=== PATIENT | male | born 1965 | race Caucasian/White ===

== ENCOUNTER → 2020-02-21 | Outpatient (CLI) | payer BC ==
--- NOTE | 2020-02-21 11:56 | ECHOS ---
STRESS ECHOCARDIOGRAM INDICATIONS: Palpitations BASELINE HEART RATE: 67 BASELINE BLOOD PRESSURE: 137/72 MAXIMUM HEART RATE: 144 MAXIMUM BLOOD PRESSURE: 212/96 85% MPHR: 134 100% MPHR: 164 METS: 10.7 MAXIMUM STAGE REACHED: 3 TOTAL EXERCISE TIME: 9:15 CLINICAL INFORMATION: Baseline rhythm is sinus mechanism rate of 67, normal axis, intervals, normal echocardiogram. Baseline blood pressure 137/72 mmHg. Patient exercised on Zane protocol for 9 minutes 15 seconds, reaching a peak rate of 144 beats per minute which is equal to 88% maximum predicted heart rate. Peak blood pressure 212/96 mmHg. Test was terminated due to fatigue. There was no chest pain. Electrocardiograph monitoring revealed no evidence of diagnostic ischemic ST deviation. FINDINGS: Baseline echocardiogram revealed normal wall motion. At peak exercise, there was normal wall motion augmentation with no hypokinesis or dyskinesis. CONCLUSION: 1. Average exercise tolerance with normal echocardiograph response to exercise. 2. Normal stress echocardiogram with no evidence of stress-induced ischemia. MMODL / IJN: [id number] /
== END | disposition home or self-care (01) ==
LOC: RADNMMAIN 08:58
PROVIDERS: ATTEND Family Medicine
DX: R00.2 Palpitations (principal)
CPT/HCPCS: 93351; Q9950

== ENCOUNTER → 2020-06-14 | Outpatient (CLI) | payer OTHER | END | disposition home or self-care (01) | LOC: LABPAT 08:13 | PROVIDERS: ATTEND Surgery | DX: Z01.812 Encounter for preprocedural laboratory examination (principal); Z20.822 Contact with and (suspected) exposure to COVID-19 | CPT/HCPCS: 93005; U0003; C9803; U0005 ==

== ENCOUNTER 2020-06-21 10:12 | Day surgery (SDC) | payer BC, OTHER ==
[2020-06-20 08:30] VITALS: BMI 32.2
[~2020-06-21 10:12] MED LIST: DEXAMETHASONE SOD PHOSPHATE 4 MG/ML 1 ML VIAL IV ONE; HEPARIN SODIUM,PORCINE 5,000 UNIT/ML 1 ML VIAL SQ PRN; HYDROmorphone 0.5 MG/0.5 ML SYRINGE IVP PRN; LACTATED RINGERS 1,000 ML IV SCH; LIDOCAINE 1% (10MG/ML) FOR IV START INTRADERMA PRN; MIDAZOLAM 2 MG/2 ML VIAL IV PRN; ONDANSETRON 4 MG/2 ML VIAL IVP ONE
[2020-06-21 11:20] LABS: HCT 46.9 % (39.0-53.0); HGB 16.5 gm/dL (13.0-17.5); MCH 31.2 pg (25.0-35.0); MCHC 35.3 g/dL (31.0-37.0); MCV 88.5 fL (80.0-100.0); Mean Platelet Volume 8.1; Platelet Count 177 k/uL (150-450); RDW 12.8 % (11.5-15.5); WBC 6.4 k/uL (3.8-10.6)
[2020-06-21] MEDS ORDERED: fentaNYL (PF) 50 MCG/ML 2 ML AMP IV ONE (11:30)
--- NOTE | 2020-06-21 12:07 | P.ANPRN ---
Procedure Note - Anesthesia - Nerve Block Performed Bilateral Rectus Abdominis Single Time Out Performed: Yes Date of Procedure: 06/21/20 Procedure Start Time: 11:30 Procedure Stop Time: 11:40 Location of Patient: PreOp Indication: Requested by Surgeon Specifically requested for management of pain by : Dominic Elizabeth (the block done to minimize post op opioid use ,as part of multimodel pain management) Sedation Type: Sedate with meaningful contact maintained Preparation: Sterile Prep Position: Supine Needle Types: Pajunk Needle Gauge: 21 Ultrasound used to visualize needle placement: Yes Ultrasound used to observe medication spread: Yes Injectate: 0.5% Ropivacaine (see comment for volume) (20 ml per side plus Dexamethasone 4 mg per side) Blood Aspirated: No Pain Paresthesia on Injection Noted: No Resistance on Injection: Normal Image Stored and Saved: Yes Events: Uneventful and Well Tolerated
[2020-06-21] MEDS ORDERED: HYDROmorphone (PF) 1 MG/ML ONE (12:15)
[2020-06-21] MEDS ORDERED: ROCURONIUM 10 MG/ML (5 ML VIAL) IV ONE (12:15)
[2020-06-21] MEDS ORDERED: LIDOCAINE 1% INJ 10MG/ML (20 ML MDV) ONE (12:15)
[2020-06-21] MEDS ORDERED: SUCCINYLCHOLINE CHLORIDE 100 MG/5 ML SYR IV ONE (12:15)
[2020-06-21] MEDS ORDERED: NEOSTIGMINE 1 MG/ML 10 ML VIAL ONE (12:15)
[2020-06-21] MEDS ORDERED: MIDAZOLAM 2 MG/2 ML VIAL ONE (12:15)
[2020-06-21] MEDS ORDERED: ePHEDrine SULFATE/0.9% NACL/PF 50 MG/5 ML SYRINGE IV ONE (12:15)
[2020-06-21] MEDS ORDERED: fentaNYL (PF) 50 MCG/ML 2 ML AMP ONE (12:15)
[2020-06-21] MEDS ORDERED: DEXAMETHASONE SOD PHOSPHATE 4 MG/ML 1 ML VIAL ONE (12:15)
[2020-06-21] MEDS ORDERED: PROPOFOL 10 MG/ML 20 ML VIAL IV ONE (12:15)
[2020-06-21] MEDS ORDERED: ROPIVACAINE 5 MG/ML 30 ML VIAL ONE (12:15)
[2020-06-21] MEDS ORDERED: GLYCOPYRROLATE 0.2 MG/ML 2 ML VIAL ONE (12:15)
[2020-06-21] MEDS: ceFAZolin 3 GM in SODIUM CHLORIDE 0.9% 100 ML IVPB PRN ×2 (12:20→12:21)
[2020-06-21] MEDS ORDERED: BUPIVACAIN-EPI 0.5%-1:200,000 30 ML VIAL SQ ONE ×2 (12:29→13:16)
[2020-06-21] MEDS ORDERED: LACTATED RINGERS 1,000 ML IV ONE (13:14)
--- NOTE | 2020-06-21 13:59 | P.OP ---
Date of Procedure: 06/21/20 Preoperative Diagnosis: Umbilical hernia Postoperative Diagnosis: Incarcerated umbilical hernia Procedure(s) Performed: Robotic repair of incarcerated umbilical hernia with mesh Anesthesia: MARGARITO Surgeon: Dominic Elizabeth Pathology: other (Hernia sac) Condition: stable Disposition: same day Indications for Procedure: 54-year-old male presented to the surgery clinic with complaints of pain around his umbilicus and was diagnosed with umbilical hernia. Patient requested surgical repair. He was risks, benefits and alternatives to the procedure and did provide consent prior to attending the operating suite. Operative Findings: Incarcerated umbilical hernia, incarcerated with mesentery, omentum along with epiploic appendage of colon Description of Procedure: The patient was brought to the operating suite and placed in supine position on the operating table. Gen. anesthesia with endotracheal intubation was performed as per anesthesia team. The right arm was tucked against the body and a footboard was applied. Patient was prepped and regular sterile fashion. A timeout was performed to verify correct patient and correct procedure. Patient was confirmed to received perioperative IV antibiotics, bilateral SCDs and 5000 units of subcutaneous heparin for DVT prophylaxis. A 5 mm incision was made along the left midaxillary line at palmers point and the abdomen was entered under direct visualization using a Visiport. Pneumoperitoneum was achieved. The umbilical hernia was clearly visualized. An additional 8 mm trocar was placed in left lower abdomen and in the epigastrium. The initial 5 mm trocar was upsized to a 12 mm trocar. The da Marco A robot was then docked. The 30 robotic camera was used. Robotic prograsp and monopolar scissors were inserted through the 8 mm robotic trochars. The hernia defect contained omentum, mesentery along with epiploic appendage of colon which was reduced using gentle traction and countertraction method. The falciform ligament was divided, using monopolar scissors close to the anterior abdominal wall to create a landing zone for the mesh. A Ventralight Echo 11 cm circular mesh was rolled and introduced into the abdominal cavity via the 12 mm trocar. The hernia defect was closed primarily with running sutures using 0V lock by taking once a bite on the fascia on either side of the defect. A Eusebio Cole device was inserted through the middle of the hernia defect and the stay suture on the mesh was grasped to elevate the mesh against the anterior abdominal wall. The mesh was then circumferentially sutured to the peritoneum of the anterior abdominal wall using 20V lock suture without any folds or kinks. The robot was then undocked. Laparoscopic 30 camera was reinserted. All trocar sites were examined. No evidence of bleeding. The 12 mm trocar site was closed using 2 transverse fascial sutures of 0 Vicryl which was placed using a Eusebio Cole device. The hernia sac was removed from the abdomen and sent as specimen. The pneumoperitoneum was evacuated and all skin incisions were closed using 4-0 Monocryl suture followed by Dermabond skin glue. The sponge, instrument and needle count were correct 2. Abdominal binder was applied. The patient was extubated and taken to postanesthesia care unit in stable condition.
[2020-06-21 14:09] VITALS: TEMP 97
[2020-06-21 15:07] VITALS: BP 136/81; PULSE 61; RESP 17
== END 2020-06-21 15:16 | disposition home or self-care (01) ==
LOC: OR 10:12
PROVIDERS: ATTEND Surgery
DX: K42.0 Umbilical hernia with obstruction, without gangrene (principal); I10 Essential (primary) hypertension; E78.5 Hyperlipidemia, unspecified; F41.9 Anxiety disorder, unspecified; K21.9 Gastro-esophageal reflux disease without esophagitis; E03.9 Hypothyroidism, unspecified; R86.1 Abnormal level of hormones in specimens from male genital organs; N52.9 Male erectile dysfunction, unspecified; G47.33 Obstructive sleep apnea (adult) (pediatric); Z98.890 Other specified postprocedural states; Z79.899 Other long term (current) drug therapy; Z79.890 Hormone replacement therapy; Z79.811 Long term (current) use of aromatase inhibitors; Z88.8 Allergy status to other drugs, medicaments and biological substances; Z99.89 Dependence on other enabling machines and devices; Z79.82 Long term (current) use of aspirin; Z82.49 Family history of ischemic heart disease and other diseases of the circulatory system; Z83.3 Family history of diabetes mellitus
CPT/HCPCS: 49653; S2900; 64488; 85027; 86850; 86900; 86901; 88302

== ENCOUNTER 2022-03-03 06:41 | Emergency (ER) | payer OTHER ==
[2022-03-03 07:32] VITALS: RESP 20
--- NOTE | 2022-03-03 07:34 | XR ---
EXAMINATION TYPE: XR chest 2V DATE OF EXAM: 03/03/2022 7:28 AM COMPARISON: CT chest 06/09/2013. TECHNIQUE: XR chest 2V Frontal and lateral views of the chest. CLINICAL INDICATION:Male, 56 years old with history of coughing up blood; FINDINGS: Lungs/Pleura: There is no evidence of pleural effusion, focal consolidation, or pneumothorax. Pulmonary vascularity: Unremarkable. Heart/mediastinum: Cardiomediastinal silhouette is unremarkable. Musculoskeletal: No acute osseous pathology. Degenerative changes of the visualized spine with endpla te sclerosis, disc space narrowing, and osteophytosis. IMPRESSION: No acute cardiopulmonary disease/process.
--- NOTE | 2022-03-03 07:55 | ED ---
URI HPI - General Chief Complaint: Upper Respiratory Infection Stated Complaint: Coughing up blood Time Seen by Provider: 03/03/22 07:31 Source: patient Mode of arrival: ambulatory Limitations: no limitations - History of Present Illness Initial Comments: 's patient is 56-year-old man who presents to be evaluated for hemoptysis. The patient states that this morning when he got up he had a little bit of coughing and noticed that there was bloody taste to it. The patient states that he really had no respiratory history until about 6-7 weeks ago when he had covid infection. He states that he had coughing that cleared up after couple of weeks but then after another few weeks it recurred, and he has been coughing since that time. The cough is largely nonproductive. The patient has seen his physician and he was given an inhaler to use as well as a pill for coughing. He has not had fevers. He is not feeling short of breath. The patient denies significant smoking history. 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 No weight loss. No chest pain. No dyspnea. No fever or chills. No change in urination or bowel movements. No leg pain or swelling. MD Complaint: cough, other Onset/Timin -: hour(s) Severity scale (1-10): 0 Consistency: now resolved Improves With: nothing Worsens With: nothing Associated Symptoms: cough Treatments Prior to Arrival: none - Related Data Home Medications Medication Instructions Recorded Confirmed Losartan/Hydrochlorothiazide 1 tab PO DAILY 11/06/13 06/21/20 [Hyzaar 100-25 Tablet] atenoloL [Tenormin] 25 mg PO DAILY 11/06/13 06/21/20 Aspirin [Adult Low Dose Aspirin EC] 81 mg PO DAILY 06/20/20 06/21/20 Omeprazole [PriLOSEC] 20 mg PO AC-BRKFST 06/20/20 06/21/20 Previous Rx's Medication Instructions Recorded HYDROcodone/APAP 5-325MG [[place] 1 tab PO Q6HR PRN 3 Days #12 tab 06/21/20 5-325] Ibuprofen [Motrin] 800 mg PO Q8H PRN #24 tab 06/21/20 Allergies Allergy/AdvReac Type Severity Reaction Status Date / Time cyclobenzaprine Allergy Rapid Verified 03/03/22 06:49 [From Flexeril] Heart Rate/rash Review of Systems ROS Statement: Those systems with pertinent positive or pertinent negative responses have been documented in the HPI. ROS Other: All systems not noted in ROS Statement are negative. Constitutional: Denies: fever, chills Respiratory: Reports: cough, hemoptysis. Denies: dyspnea, wheezes, stridor Cardiovascular: Denies: chest pain, palpitations, dyspnea on exertion, o rthopnea, edema, syncope Gastrointestinal: Denies: abdominal pain, vomiting, diarrhea, melena, hematochezia Genitourinary: Denies: dysuria, frequency, hematuria Skin: Denies: rash Neurological: Denies: headache Past Medical History Past Medical History: Hypertension, Sleep Apnea/CPAP/BIPAP History of Any Multi-Drug Resistant Organisms: None Reported Past Surgical History: Back Surgery, Orthopedic Surgery Additional Past Surgical History / Comment(s): L4-5 laminectomy, rt carpal tunnel Past Anesthesia/Blood Transfusion Reactions: No Reported Reaction Past Psychological History: Anxiety Smoking Status: Never smoker Past Alcohol Use History: None Reported Past Drug Use History: None Reported - Past Family History Mother Family Medical History: No Reported History General Exam Limitations: no limitations General appearance: alert, in no apparent distress Head exam: Present: atraumatic, normocephalic Eye exam: Present: normal appearance. Absent: scleral icterus, conjunctival injection ENT exam: Present: normal oropharynx Neck exam: Present: normal inspection Respiratory exam: Present: normal lung sounds bilaterally. Absent: respiratory distress, wheezes, rales, rhonchi, stridor, chest wall tenderness, accessory muscle use, decreased breath sounds, prolonged expiratory Cardiovascular Exam: Present: regular rate, normal rhythm, normal heart sounds. Absent: systolic murmur, diastolic murmur, rubs, gallop GI/Abdominal exam: Present: soft. Absent: distended, tenderness, guarding, rebound, rigid, mass Extremities exam: Present: normal inspection, normal capillary refill. Absent: pedal edema, calf tenderness Back exam: Present: normal inspection. Absent: CVA tenderness (R), CVA tenderness (L) Neurological exam: Present: alert Skin exam: Present: warm, dry, intact, normal color. Absent: rash Course Vital Signs 03/03/22 03/03/22 06:49 07:30 Temperature 98.1 F Pulse Rate 96 Respiratory 16 20 Rate Blood Pressure 164/94 O2 Sat by Pulse 98 Oximetry Disposition Clinical Impression: Hemoptysis Disposition: HOME SELF-CARE Condition: Good Instructions (If sedation given, give patient instructions): Coughing Up Blood (Hemoptysis) (ED) Is patient prescribed a controlled substance at d/c from ED?: No Referrals: Ulices Delvalle MD [Primary Care Provider] - 1-2 days
[2022-03-03 08:13] VITALS: BP 138/78; PULSE 80; TEMP 98.7
== END 2022-03-03 08:12 | disposition home or self-care (01) ==
LOC: EC 06:41
DX: R04.2 Hemoptysis (principal); I10 Essential (primary) hypertension; F41.9 Anxiety disorder, unspecified; Z88.8 Allergy status to other drugs, medicaments and biological substances; Z79.82 Long term (current) use of aspirin; Z79.899 Other long term (current) drug therapy
CPT/HCPCS: 71046; 99283

== ENCOUNTER 2023-04-20 10:13 | Day surgery (SDC) | payer OTHER ==
[~2023-04-20 10:13] MED LIST changes: -HEPARIN SODIUM,PORCINE 5,000 UNIT/ML 1 ML VIAL SQ PRN; -LACTATED RINGERS 1,000 ML IV SCH; -MIDAZOLAM 2 MG/2 ML VIAL IV PRN; +SCOPOLAMINE 1 MG/72 HR PATCH TRANSDERM ONE; +droPERidol 5 MG/2 ML VIAL IVP ONE
--- NOTE | 2023-04-20 10:32 | XR ---
EXAMINATION TYPE: XR KUB DATE OF EXAM: 04/20/2023 Comparison: None Clinical History: 57-year-old male kidney stones Findings: Mild degenerative change of the hips. Left-sided pelvic phleboliths. Questionable faint 5 mm density left paramedian mid abdomen. No other suspicious calcifications are clearly identified. Nonobstructiv e bowel gas pattern. Impression: Questionable faint 5 mm density left paramedian mid abdomen. If left-sided renal colic, a subtle uppe r ureteral stone would be difficult to exclude.
--- NOTE | 2023-04-20 10:48 | P.HPIHPCON ---
History of Present Illness H&P Date: 04/20/23 Chief Complaint: Ureteral stone This is a 57-year-old male with history of 2 left-sided ureteral stone measuring 4 and 6 mm. He is symptomatic from his stones. Option of left-sided ureteroscopy with holmium laser was discussed with him. Aware of the risk which includes but not limited to bleeding, infection, injury to the ureter. Risk of anesthesia was discussed. He understood all the risk and agreed to proceed Consent for Procedure: I have explained the operation/procedure to the patient, including the risks, benefits, side effects, alternative therapies (including not receiving the proposed treatment or service), the likelihood of the patient achieving his/her goals, and potential recuperation problems for the procedure/sedation/analgesia, as well as any blood products, if indicated. I also explained to the patient the risks, benefits and side effects of the alternatives, as well as the risks related to not receiving the proposed procedure, care, treatment, or services. Past Medical History Past Medical History: GERD/Reflux, Hypertension, Sleep Apnea/CPAP/BIPAP Additional Past Medical History / Comment(s): wear cpap, kidney stones History of Any Multi-Drug Resistant Organisms: None Reported Past Surgical History: Back Surgery, Orthopedic Surgery Additional Past Surgical History / Comment(s): L4-5 laminectomy, rt carpal tunnel, colonoscopy Past Anesthesia/Blood Transfusion Reactions: No Reported Reaction Smoking Status: Never smoker - Past Family History Mother Family Medical History: No Reported History Medications and Allergies Home Medications Medication Instructions Recorded Confirmed Type Losartan/Hydrochlorothiazide 1 tab PO DAILY 11/06/13 04/15/23 History [Hyzaar 100-25 Tablet] atenoloL [Tenormin] 25 mg PO DAILY 11/06/13 04/15/23 History Aspirin [Adult Low Dose Aspirin EC] 81 mg PO DAILY 06/20/20 04/15/23 History Omeprazole [PriLOSEC] 20 mg PO AC-BRKFST 06/20/20 04/15/23 History HYDROcodone/APAP 5-325MG [[place] 1 tab PO Q6HR PRN 3 Days #12 tab 06/21/20 04/15/23 Rx 5-325] Ibuprofen [Motrin] 800 mg PO Q8H PRN #24 tab 06/21/20 04/15/23 Rx Escitalopram [Lexapro] 20 mg PO DAILY 04/15/23 04/15/23 History Levothyroxine Sodium 100 mcg PO DAILY 04/15/23 04/15/23 History Unk Vitamin D 1 tab PO DAILY 04/15/23 04/15/23 History metFORMIN HCL [Glucophage] 1,000 mg PO BID 04/15/23 04/15/23 History Allergies Allergy/AdvReac Type Severity Reaction Status Date / Time cyclobenzaprine Allergy Rapid Verified 04/15/23 12:22 [From Flexeril] Heart Rate/rash Surgical - Exam - General no distress, moderate pain - Eyes normal ocular movement, no pale - ENT normal nares, normal mucosa - Respiratory normal expansion, normal respiratory effort - Abdomen Abdomen: soft, non tender Assessment and Plan Assessment: OR for left-sided ureteroscopy, holmium laser lithotripsy, stone basketing and stent insertion
[2023-04-20 11:06] VITALS: TEMP 96.8
[2023-04-20] MEDS: LACTATED RINGERS 1,000 ML IV SCH ×2 (11:06→11:48)
[2023-04-20] MEDS ORDERED: LIDOCAINE 1% INJ 10MG/ML (20 ML MDV) ONE (11:43)
[2023-04-20] MEDS ORDERED: fentaNYL (PF) 50 MCG/ML 2 ML AMP ONE (11:43)
[2023-04-20] MEDS ORDERED: MIDAZOLAM 2 MG/2 ML VIAL ONE (11:43)
[2023-04-20] MEDS ORDERED: KETOROLAC 15 MG/ML 1 ML VIAL ONE (11:43)
[2023-04-20] MEDS ORDERED: PROPOFOL 10 MG/ML 20 ML VIAL IV ONE (11:43)
[2023-04-20] MEDS ORDERED: WATER FOR INJECTION, STERILE 10 ML VIAL IV ONE (11:43)
[2023-04-20] MEDS ORDERED: PHENYLEPHRINE-0.9% NACL SYG 1,000 MCG/10 ML SYRINGE ONE (11:43)
[2023-04-20] MEDS ORDERED: ePHEDrine 50 MG/ML 1 ML VIAL ONE (11:43)
[2023-04-20] MEDS ORDERED: LACTATED RINGERS 1,000 ML IV ONE (12:42)
--- NOTE | 2023-04-20 13:12 | P.OP ---
Date of Procedure: 04/20/23 Preoperative Diagnosis: Left ureteral stone Postoperative Diagnosis: same Procedure(s) Performed: Cystoscopy, left ureteroscopy, holmium laser lithotripsy, stone basketing and stent insertion Implants: 6-Macedonian by 28 cm stent on the left ureter, left on string Anesthesia: ESSENCEA Surgeon: Kolby Perez Estimated Blood Loss (ml): 5 Pathology: other (left ureteral) Condition: stable Disposition: PACU Indications for Procedure: This is a 57-year-old male with history of 2 left-sided ureteral stone measuring 4 and 6 mm. He is symptomatic from his stones. Option of left-sided ureteroscopy with holmium laser was discussed with him. Aware of the risk which includes but not limited to bleeding, infection, injury to the ureter. Risk of anesthesia was discussed. He understood all the risk and agreed to proceed Operative Findings: Left distal ureteral stone, left proximal ureteral stone Description of Procedure: Patient was brought to the operating room, general anesthesia was induced. He was prepped and draped in sterile fashion and placed in dorsal lithotomy position. Cystoscopy fitted with a 21-Macedonian sheath was inserted per urethra, cystoscopy was performed which showed no abnormality within the bladder. Attention was then carried to the left ureteral orifice, a semirigid ureteroscope was inserted per urethra and advanced up the left ureteral orifice, stone was encountered in the distal ureter which was lasered, fragments were removed using the stone basket. At this time I advance the scope all the way up to the proximal ureter and an additional large stone was encountered, using the holmium laser the stone was fragmented, stone fragments were removed using the stone basket. At this time pullback ureteroscopy was performed showed no abnormality within the ureter or njury to the ureter or any sizable fragments, as ureteroscope was withdrawn a wire was advanced through. Next an 1113 Macedonian access sheath was passed over the wire into the proximal ureter. Next a flexible ureteroscope was inserted through the access sheath, renoscopy was performed which showed an additional stone in the upper pole that was dusted, repeat renoscopy showed no sizable fragments or injury to the kidney, pullback ureteroscopy was performed showed no injury to the ureter or any ureteral stones, as ureteroscope was withdrawn and a sensor wire was advanced through. Next a ureteral stent was passed over the wire, the proximal curl was visualized on fluoroscopy and the distal curl was visualized using cystoscope. The stent was left on a string and taped to the patient penis. Bladder was emptied at the end of the case, patient was taken to recovery in stable condition
[2023-04-20 13:37] VITALS: RESP 16
[2023-04-20 14:01] VITALS: PULSE 71
[2023-04-20 14:26] VITALS: BP 137/79
--- NOTE | 2023-04-20 15:20 | FL ---
EXAMINATION TYPE: FL guidance operating room DATE OF EXAM: 04/20/2023 Comparison: None Clinical History: 57-year-old male URETERAL STONE Findings: 22 sec FL .33333 mGycm2 DAP dose Imaging during urologic intervention for ureteral stone. Total images 1 Impression: Procedural fluoroscopy as above.
== END 2023-04-20 14:19 | disposition home or self-care (01) ==
LOC: OR 10:13
PROVIDERS: ATTEND Urology
DX: N20.1 Calculus of ureter (principal); I10 Essential (primary) hypertension; K21.9 Gastro-esophageal reflux disease without esophagitis; G47.33 Obstructive sleep apnea (adult) (pediatric); Z98.890 Other specified postprocedural states; Z79.82 Long term (current) use of aspirin; Z79.899 Other long term (current) drug therapy; Z88.2 Allergy status to sulfonamides; Z87.442 Personal history of urinary calculi
CPT/HCPCS: 82365; 74018; 52356; C2625; C1769; J2250; J1100; J0690; J2405; J2001; J3010; J1885; J2704; J2371

== ENCOUNTER → 2023-09-07 | Outpatient (CLI) | payer OTHER ==
--- NOTE | 2023-09-09 09:36 | MR ---
EXAMINATION TYPE: MR knee LT wo con DATE OF EXAM: 09/07/2023 COMPARISON: NONE HISTORY: Left knee medial pain and swelling x3 months TECHNIQUE: Multiplanar, multisequence images of the knee is performed without IV contrast. FINDINGS: MEDIAL MENISCUS: Subtle horizontal signal seen best on coronal images in the posterior horn is identi fied. This encroaches upon the inferior articular surface coronal image 27 suspicious for full-thickn ess tear. LATERAL MENISCUS: Subtle horizontal signal seen best on coronal images does not extend to articular s urface to the central body and posterior horn. CRUCIATE LIGAMENTS: The anterior and posterior cruciate ligaments are intact and unremarkable. COLLATERAL LIGAMENTS: The medial collateral ligament and lateral collateral ligament complex are inta ct. Moderate fluid signal surrounds the medial collateral ligament. EXTENSOR MECHANISM: Visualized quadriceps and patellar tendons are intact. EFFUSION: Moderate to large size suprapatellar joint effusion. POPLITEAL CYST: No popliteal/myrick cyst. Some ill-defined fluid in the popliteal space is present im mediately posterior to the knee joint. TRICOMPARTMENT SPACES: Moderate tricompartment joint space loss. No significant spurring. CARTILAGE: Cartilaginous loss medial tibiofemoral compartment. BONE MARROW SIGNAL: Heterogeneous diminished T1 and increased T2 signal medial tibial femoral compart ment greatest anterior tibia and to much greater degree involving the distal medial femoral condyle m edial aspect. No linear diminished T1 signal to suggest fracture identified. No definitive bony fragm entation seen. OTHER: No additional significant abnormality is appreciated. IMPRESSION: 1. Moderate tricompartment degenerative changes most prominent medial tibial femoral compartment as d etailed above. 2. There is asymmetric abnormal bone marrow edema in the medial tibial femoral compartment greatest i n the medial aspect of the distal medial femoral condyle. 3. Moderate MCL sprain injury. 4. Moderate to large size patellar joint effusion. 5. At least intrasubstance tear but suspected full-thickness tear posterior horn of the medial menisc us. 6. Subtle intrasubstance tear lateral meniscus involving central body and posterior horn.
== END | disposition home or self-care (01) ==
LOC: RADMRIMAIN 15:57
PROVIDERS: ATTEND Orthopaedic Surgery
DX: M17.12 Unilateral primary osteoarthritis, left knee (principal); M23.632 Other spontaneous disruption of medial collateral ligament of left knee; M25.462 Effusion, left knee; M23.322 Other meniscus derangements, posterior horn of medial meniscus, left knee; M23.352 Other meniscus derangements, posterior horn of lateral meniscus, left knee; M23.8X2 Other internal derangements of left knee; I10 Essential (primary) hypertension; R60.0 Localized edema

== ENCOUNTER → 2024-08-23 | Outpatient (CLI) | payer OTHER ==
--- NOTE | 2024-09-04 21:31 | P.PCN ---
Date of Procedure: 08/23/24 Operative Findings: Home Sleep Study Date of Service: 08/23/24 History This is a 59-year-old male patient, with known history of obstructive sleep apnea that was diagnosed back in 2012 and at the time of his diagnosis the patient had moderate severe disease with an AHI of 26 and the patient was treated with a CPAP pressure of 9 cm of water. The patient was utilizing the same CPAP unit over the past 11 years. He came in for a reevaluation. A home sleep study was ordered to reestablish diagnosis and proceed with treatment. His current machine is old, reliable, loud and it is malfunctioning. Comorbid conditions include hyperlipidemia, hypothyroidism, chronic anxiety, hypertension, and acid reflux. Physical findings The weight 253 with a BMI of 30.8 Technical description The [employer] ApneaLink system was used to complete his home sleep study. This is a Preop sleep study evaluation. The total recording duration was 7 hours and 47 minutes. The study started 11:14 PM and ended at 7:02 AM. There was a total of 7 hours and 36 minutes of flow monitoring and 7 hours and 37 minutes of oxygen saturation monitoring. Results Respiratory analysis showed a total of 9 obstructive apneas and 84 obstructive hypopneas. The resulting AHI was 12.2 consistent with mild disease Oxygenation analysis The patient's baseline pulse ox was 94%. Average pulse ox during sleep was 93% and the lowest pulse ox was 88%. The patient had no significant desaturations below pulse ox of 89% Cardiac summary Average heart rate was 58 with a minimum heart rate of 50 and a maximum heart rate of 81 Assessment Obstructive sleep apnea moderate severity with an AHI of 12. No significant nocturnal oxygen saturations Plan Ordered a CPAP machine for this patient. The patient will be set at a pressure of 9 cm of water with a C-Flex of 3. The patient was seen back in the office of 30 to 90 days presents clinic response and compliancy. He will be using a Mirage fx nasal mask.
== END ==
LOC: 3 N SLEEP 17:26
PROVIDERS: ATTEND Internal Medicine Critical Care Medicine
DX: G47.33 Obstructive sleep apnea (adult) (pediatric) (principal); E03.9 Hypothyroidism, unspecified; E78.5 Hyperlipidemia, unspecified; F41.9 Anxiety disorder, unspecified; I10 Essential (primary) hypertension; K21.9 Gastro-esophageal reflux disease without esophagitis; Z88.8 Allergy status to other drugs, medicaments and biological substances; Z99.89 Dependence on other enabling machines and devices